=== PATIENT | female | born 1965 | race Caucasian/White ===

== ENCOUNTER 2020-09-23 08:59 | Outpatient (REF) | payer BC, SELFPAY ==
--- NOTE | ~2020-09-23 | MM_ITS ---
EXAMINATION: MM SCREENING DIGITAL BREAST TOMOSYNTHESIS, BILATERAL CLINICAL INFORMATION: Screening. Asymptomatic. The lifetime risk of breast cancer based on the Tyrer-Cuzick Model is 6%. COMPARISON: Mammography: 09/20/2019, 06/29/2018, 06/10/2017, 05/29/2016, 05/27/2015; targeted left breast ultrasound 07/04/2018. TECHNIQUE: Digital breast tomosynthesis is performed in both the craniocaudal and mediolateral oblique views along with computer-aided detection (CAD). Synthesized 2D images are generated from the tomosynthesis. FINDINGS: There is fine fibronodular parenchymal pattern. The right breast shows no interval mass or architectural abnormality. Neither breast shows abnormal calcific lesions. The axilla and skin contours are unremarkable. The left breast has new small circumscribed nodule posterior 6:00 position 0.5 cm size with probable adjacent smaller satellite circumscribed nodule. Margins are smooth and tomography. Finding may represent tiny cyst(s). Patient will be recalled for additional targeted ultrasound. MM/MM tomosynthesis screening BI IMPRESSION: 1. Left: New smooth 0.5 cm circumscribed nodule 6:00 position posterior depth, possibly a cyst. 2. Right: No mammographic evidence of malignancy. ASSESSMENT: BI-RADS 0: Incomplete - Need Additional Imaging Evaluation RECOMMENDATION: 1. Targeted ultrasound left breast. 2. Radiology department staff will contact the patient for additional imaging. This patient's information was entered into a reminder system with a target due date for their next mammogram.
== END 2020-09-23 09:00 | disposition home or self-care (01) ==
LOC: HO.MAMMO 08:59
PROVIDERS: Visit Provider Internal Medicine
DX: Z12.31 Encounter for screening mammogram for malignant neoplasm of breast (principal)
CPT/HCPCS: 77063; 77067

== ENCOUNTER 2020-09-26 15:08 | Outpatient (REF) | payer BC, SELFPAY ==
--- NOTE | ~2020-09-26 | US_ITS ---
EXAMINATION: US DIAGNOSTIC ULTRASOUND BREAST, LEFT CLINICAL INFORMATION: Recall from screening for new smooth circumscribed nodule posterior 6:00 left breast. COMPARISON: Mammography 09/23/2020, 09/20/2019. TECHNIQUE: Ultrasound left breast is targeted to the posterior inferior breast. Grayscale imaging and color Doppler are performed without and with harmonics. No prior similar to the greater FINDINGS: There is a small solitary oval cyst 6:00 position posterior depth at least 7 cm from nipple measuring 5 x 3 mm. Margins are circumscribed. There is no solid component. Increased through-transmission of sound is noted during imaging. There is no associated color flow. This corresponds to the finding on mammography. There is no solid mass or architectural abnormality or focal duct ectasia. Results are discussed with the patient at time of visit. US/US breast LT limited IMPRESSION: Cyst posterior 6:00 position measuring 5 x 3 mm. ASSESSMENT: BI-RADS 2: Benign RECOMMENDATION: Routine annual mammography screening. This patient's information was entered into a reminder system with a target due date for their next mammogram.
== END 2020-09-26 15:09 | disposition home or self-care (01) ==
LOC: HO.MAMMO 15:08
PROVIDERS: Visit Provider Internal Medicine
DX: N63.25 Unspecified lump in the left breast, overlapping quadrants (principal)
CPT/HCPCS: 76642

== ENCOUNTER 2021-10-07 07:40 | Outpatient (REF) | payer OTHER, SELFPAY ==
--- NOTE | ~2021-10-07 | MM_ITS ---
EXAMINATION: MM SCREENING DIGITAL BREAST TOMOSYNTHESIS, BILATERAL CLINICAL INFORMATION: Screening The lifetime risk of breast cancer based on the Tyrer-Cuzick Model is 6.2%. COMPARISON: Mammography: September 26, 2020 and studies dating back to March 31, 2013 TECHNIQUE: Digital breast tomosynthesis is performed in both the craniocaudal and mediolateral oblique views along with computer-aided detection (CAD). Synthesized 2D images are generated from the tomosynthesis. FINDINGS: The breasts are heterogeneously dense, which may obscure small masses (ACR BI-RADS breast composition Category c). There is a stable parenchymal pattern seen bilaterally without new abnormal dominant mass or suspicious grouping of microcalcifications. Within the right axilla there is an irregularly lobular shaped lymph node with question of cortical thickening for which targeted ultrasound evaluation is recommended. MM/MM tomosynthesis screening BI IMPRESSION: Possible abnormal right axillary lymph node for further evaluation with ultrasound. ASSESSMENT: BI-RADS 0: Incomplete - Need Additional Imaging Evaluation RECOMMENDATION: Targeted right breast axillary ultrasound.
== END 2021-10-07 07:41 | disposition home or self-care (01) ==
LOC: HO.MAMMO 07:40
PROVIDERS: Visit Provider Internal Medicine
DX: Z12.31 Encounter for screening mammogram for malignant neoplasm of breast (principal)
CPT/HCPCS: 77063; 77067

== ENCOUNTER 2021-10-14 08:38 | Outpatient (REF) | payer OTHER, SELFPAY ==
--- NOTE | ~2021-10-14 | US_ITS ---
EXAMINATION: US DIAGNOSTIC ULTRASOUND BREAST, RIGHT CLINICAL INFORMATION: Lobular appearing lymph node with question thickened cortex. COMPARISON: Mammography of October 07, 2021 and studies dating back to August 05, 2009. TECHNIQUE: Ultrasound of the right axilla is performed with real-time rivas scale imaging and color Doppler. FINDINGS: Ultrasound of the right axilla demonstrates multiple normal appearing lymph nodes without evidence of cortical thickening or lobulation. Normal fatty hilum present. Results are discussed with the patient at time of visit. US/US breast RT limited IMPRESSION: Normal right axillary lymph nodes without abnormal mass or abnormal lymph node appreciated. ASSESSMENT: BI-RADS 1: Negative RECOMMENDATION: Routine annual mammography screening. This patient's information was entered into a reminder system with a target due date for their next mammogram.
== END 2021-10-14 08:39 | disposition home or self-care (01) ==
LOC: HO.MAMMO 08:38
PROVIDERS: Visit Provider Internal Medicine
DX: N63.15 Unspecified lump in the right breast, overlapping quadrants (principal)
CPT/HCPCS: 76642

== ENCOUNTER 2022-10-21 07:17 | Outpatient (REF) | payer OTHER, SELFPAY | END 2022-10-21 07:18 | disposition home or self-care (01) | LOC: HO.MAMMO 07:17 | PROVIDERS: PCP Internal Medicine; Referring Provider Internal Medicine; Visit Provider Internal Medicine | DX: Z12.31 Encounter for screening mammogram for malignant neoplasm of breast (principal) | CPT/HCPCS: 77063; 77067 ==

== ENCOUNTER → 2022-10-21 07:30 | Outpatient (BNV) | payer OTHER, SELFPAY | PROVIDERS: PCP Internal Medicine; Referring Provider Internal Medicine; Visit Provider Radiology Diagnostic Radiology | DX: Z12.31 Encounter for screening mammogram for malignant neoplasm of breast (principal) | CPT/HCPCS: 77063; 77067 ==

== ENCOUNTER 2023-10-27 07:12 | Outpatient (REF) | payer OTHER, SELFPAY ==
--- NOTE | ~2023-10-27 | MM_ITS ---
EXAMINATION: MM SCREENING DIGITAL BREAST TOMOSYNTHESIS, BILATERAL CLINICAL INFORMATION: Screening. Asymptomatic. COMPARISON: Mammography: Comparison is made with available priors TECHNIQUE: Digital breast mammography with tomosynthesis is performed in both the craniocaudal and mediolateral oblique views along with computer-aided detection (CAD). FINDINGS: The breasts are heterogeneously dense, which may obscure small masses (ACR BI-RADS breast composition Category c). There are no significant masses, abnormal calcifications, or other abnormalities. MM/MM tomosynthesis screening BI IMPRESSION: No mammographic evidence of malignancy. ASSESSMENT: BI-RADS BI-RADS 1 - Negative RECOMMENDATION: Routine annual mammography screening. 1 year F/U This examination should not preclude the clinical evaluation of a suspicious palpable abnormality. This patient's information was entered into a reminder system with a target due date for their next mammogram. Electronically signed by: Alpa Kraft DO 11/14/2023 09:14 AM EDT
== END 2023-10-27 07:13 | disposition home or self-care (01) ==
LOC: HO.MAMMO 07:12
PROVIDERS: PCP Internal Medicine; Visit Provider Internal Medicine
DX: Z12.31 Encounter for screening mammogram for malignant neoplasm of breast (principal)
CPT/HCPCS: 77063; 77067

== ENCOUNTER → 2023-10-27 07:30 | Outpatient (BNV) | payer OTHER, SELFPAY | PROVIDERS: PCP Internal Medicine; Visit Provider Internal Medicine | DX: Z12.31 Encounter for screening mammogram for malignant neoplasm of breast (principal) | CPT/HCPCS: 77063; 77067 ==

== ENCOUNTER 2024-11-01 07:45 | Outpatient (REF) | payer OTHER, SELFPAY ==
--- OUTSIDE RECORDS SUMMARY | 2024-11-01 07:48 | XMS_ITS | Encounter Summary ---
Author Organization [facility] Address [address] [place] [address] [place] [phone] Phone Care Team Providers Care Carburizer Name Role Phone Ari Beauchamp MD Primary Care Provider [phone] Ari Beauchamp MD Unavailable [phone] Amberly Lynch NP Primary Care Provider Encounter Details Date Type Department Care Team (Latest Contact Info) Description 08/31/2017 Transcribe Orders [address] [address] Ari Beauchamp MD [address] [place] [phone] [email or web address] Neck pain (Primary Dx); Routine general medical examination at a health care facility Social History Tobacco Use Types Packs/Day Years Used Date Smoking Tobacco: Never Assessed Comments Unknown Sex and Gender Information Value Date Recorded Sex Assigned at Not on file Legal Sex Female 9:41 PM EDT Gender Identity Not on file Sexual Orientation Not on file documented as of this encounter Plan of Treatment Not on file documented as of this encounter Results * Lyme screen with reflex to Western blot, blood (08/31/2017 7:31 AM EDT) Lyme AB IgG Negative Negative [facility] Lyme AB IgM Negative Negative [facility] Blood 08/31/2017 7:31 AM EDT 08/31/2017 7:46 AM EDT us Ari Beauchamp MD LAB BLOOD ORDERABLES Final R esult Performing Organization Address [facility] Co de Phone Number [address] [address] * Rheumatoid factor (08/31/2017 7:31 AM EDT) RHEUMATOID FACTOR <10.0 0.0 - 14.0 IU/ml [facility] Blood 08/31/2017 7:31 AM EDT 08/31/2017 7:46 AM EDT us Ari Beauchamp MD LAB BLOOD ORDERABLES Final R esult Performing Organization Address [facility] Co de Phone Number [address] [address] * C-Reactive Protein (08/31/2017 7:31 AM EDT) Pathologist [facility] C REACTIVE PROTEIN 2.6 0.0 - 4.0 mg/L [facility] Comment:New Reference Range and Measuring Units effective 07/07/17. Blood 08/31/2017 7:31 AM EDT 08/31/2017 7:46 AM EDT us Ari Beauchamp MD LAB BLOOD ORDERABLES Final R esult Performing Organization Address [facility] Co de Phone Number [address] [address] * CBC and differential (08/31/2017 7:31 AM EDT) WBC 8.04 3.40 - 11.20 K/uL [facility] RBC 4.43 3.80 - 4.80 M/uL [facility] HGB 14.2 12.0 - 15.0 g/dL [facility] HCT 42.9 36.0 - 46.0 % [facility] PLT 296 130 - 400 K/uL [facility] MCV 96.8 79.0 - 98.0 fL [facility] MCH 32.1 27.0 - 34.8 pg [facility] MCHC 33.1 31.5 - 36.0 g/dL [facility] RDW 13.1 10.8 - 14.6 % [facility] MPV 10.0 9.4 - 12.4 fl [facility] NRBC 0.00 /100 WBCs [facility] ABSOLUTE NRBC 0.00 K/uL [facility] DIFF METHOD Auto [facility] NEUTS 58.5 45.30 - 77.70 % [facility] LYMPHS 32.6 12.30 - 39.70 % [facility] MONOS 5.8 4.10 - 12.80 % [facility] EOS 2.4 0 - 7.2 % [facility] BASOS 0.6 0 - 2.80 % [facility] Granulocytes, immature (%) 0.1 0.0 - 0.9 % [facility] ABSOLUTE NEUTS 4.70 1.40 - 7.70 K/uL [facility] ABSOLUTE LYMPHS 2.62 0.60 - 3.20 K/uL [facility] ABSOLUTE MONOS 0.47 0.11 - 0.59 K/uL [facility] ABSOLUTE EOS 0.19 0.01 - 0.50 K/uL [facility] ABSOLUTE BASOS 0.05 0.00 - 0.08 K/uL [facility] Granulocytes, immature 0.01 0.00 - 0.05 K/uL [facility] Blood 08/31/2017 7:31 AM EDT 08/31/2017 7:46 AM EDT us Ari Beauchamp MD LAB BLOOD ORDERABLES Final R esult [facility] [address] [place] [address] * Antinuclear antibody (BRIAN) (08/31/2017 7:31 AM EDT) BRIAN SCREEN ON HEP 2 Negative Negative [facility] Blood 08/31/2017 7:31 AM EDT 08/31/2017 7:46 AM EDT us Ari Beauchamp MD LAB BLOOD ORDERABLES Final R esult [address] [address] * TSH with reflex (08/31/2017 7:31 AM EDT) TSH 2.33 0.27 - 4.20 uIU/mL [facility] Blood 08/31/2017 7:31 AM EDT 08/31/2017 7:46 AM EDT us Ari Beauchamp MD LAB BLOOD ORDERABLES Final R esult Performing Organization Address [facility] Co de Phone Number [address] [address] * (ABNORMAL) Lipid panel (08/31/2017 7:31 AM EDT) HDL 70 mg/dL [facility] Comment: Interpretation: Risk Level Females Decreased >55mg/dL Average 50-55 mg/dL Increased <50 mg/dL CHOLESTEROL 197 0 - 240 mg/dL [facility] TRIGLYCERIDES 88 30 - 160 mg/dL [facility] LDL 109 50 - 129 mg/dL [facility] Comment: LDL levels in terms of risk for coronary heart disease: <100 mg/dL: Optimal 100-129 mg/dL: Near or above optimal 130-159 mg/dL: Borderline high 160-189 mg/dL: High >190 mg/dL: Very High CARDIAC RISK RATIO 2.8(L) 3.3 - 4.4 C [facility] Blood 08/31/2017 7:31 AM EDT 08/31/2017 7:46 AM EDT us Ari Beauchamp MD LAB BLOOD ORDERABLES Final R esult Performing Organization Address City/[facility]/ZIP Co de Phone Number [address] [address] * (ABNORMAL) Comprehensive metabolic panel (08/31/2017 7:31 AM EDT) SODIUM 146 133 - 146 mmol/L [facility] POTASSIUM 4.8 3.3 - 5.1 mmol/L [facility] CHLORIDE 109(H) 96 - 108 mmol/L [facility] CO2 26 21 - 35 mmol/L [facility] BUN 9 6 - 19 mg/dL [facility] CREATININE 1.00 0.5 - 1.5 mg/dL [facility] GLUCOSE 95 70 - 99 mg/dL [facility] ALBUMIN 4.2 3.9 - 4.8 g/dL [facility] TOTAL PROTEIN 6.9 6.5 - 8.0 g/dL [facility] CALCIUM 10.0 8.4 - 10.3 mg/dL [facility] ALKALINE PHOSPHATASE 97 39 - 117 U/L [facility] TOTAL BILIRUBIN 0.3 0.0 - 1.2 mg/dL [facility] AST 19 0 - 37 U/L [facility] ALT 6 0 - 40 U/L [facility] GLOBULIN 2.7 1 - 4.8 g/dL [facility] EGFR 64 >59 mL/min/1.7 3m2 [facility] Comment:If patient is black, multiply result by 1.159. Estimated glomerular filtration rate calculated using the CKD-EPI equation. ANION GAP 16 10 - 20 mmol/L [facility] Blood 08/31/2017 7:31 AM EDT 08/31/2017 7:46 AM EDT us Ari Beauchamp MD LAB BLOOD ORDERABLES Final R esult [facility] [address] [place] [address] documented in this encounter Visit Diagnoses Diagnosis Neck pain- Primary Cervicalgia Routine general medical examination at a health care facility documented in this encounter Care Teams Carburizer Relationship Specialty Start Date End Date Ari Beauchamp MD [address] [place] [phone] [email or web address] PCP - General 12/08/16 07/20/23 Amberly Lynch NP [address] [place] [phone] [email or web address] PCP - General Nurse Practitioner 07/21/23 Ari Beauchamp MD [address] [place] [phone] [email or web address] Insurance Assigned Provider 05/28/18 04/27/21 documented as of this encounter Additional Source Comments The information contained in this document represents components of the legal health record. It is not the complete legal health record.[facility]
--- OUTSIDE RECORDS SUMMARY | 2024-11-01 07:48 | XMS_ITS | Encounter Summary ---
Author Organization [facility] Address [address] [place] [phone] Phone Care Team Providers Care Anthropology Faculty Member Name Role Phone Ari Beauchamp MD Primary Care Provider [phone] Amberly Lynch NP Primary Care Provider Encounter Details Date Type Department Care Team (Latest Contact Info) Description 11/27/2021 Transcribe Orders [facility] Laboratory [address] [place] [address] [phone] Amberly Gil NP [address] [place] [address] [email or web address] Constipation, unspecified constipation type (Primary Dx); Nausea; Abdominal pain, epigastric; Lower abdominal pain Social History Tobacco Use Types Packs/Day Years Used Date Smoking Tobacco: Every Day Cigarettes Smokeless Tobacco: Never Comments:about 15 a day Alcohol Use Standard Drinks/Week Comments Not Currently 0 (1 standard drink = 0.6 oz pur e alcohol) Comments No Sex and Gender Information Value Date Recorded Sex Assigned at Not on file Legal Sex Female 9:41 PM EDT Gender Identity Not on file Sexual Orientation Not on file documented as of this encounter Plan of Treatment Not on file documented as of this encounter Results * TSH (11/27/2021 10:48 AM EDT) TSH 0.97 0.27 - 4.20 uIU/mL [facility] Blood 11/27/2021 10:4 8 AM EDT 11/27/2021 10:53 AM EDT Amberly Gutiérrez Jeffery [employer] LAB BLOOD ORDERABLES Final Result [address] [address] * C-Reactive Protein (11/27/2021 10:48 AM EDT) [facility] C REACTIVE PROTEIN <3.0 0.0 - 4.0 mg/L [facility] Blood 11/27/2021 10:4 8 AM EDT 11/27/2021 10:53 AM EDT Amberly Gil THEATER [employer] DES[employer] LAB BLOOD ORDERABLES Final Result [address] [address] * Comprehensive metabolic panel (11/27/2021 10:48 AM EDT) [facility] SODIUM 140 133 - 146 mmol/L [facility] POTASSIUM 4.6 3.3 - 5.1 mmol/L [facility] CHLORIDE 105 96 - 108 mmol/L [facility] CO2 25 21 - 35 mmol/L [facility] BUN 15 6 - 19 mg/dL [facility] CREATININE 0.80 0.5 - 1.5 mg/dL [facility] GLUCOSE 90 70 - 99 mg/dL [facility] ALBUMIN 4.4 3.9 - 4.8 g/dL [facility] TOTAL PROTEIN 6.7 6.5 - 8.0 g/dL [facility] CALCIUM 9.9 8.4 - 10.3 mg/dL [facility] ALKALINE PHOSPHATASE 85 39 - 117 U/L [facility] TOTAL BILIRUBIN 0.2 0.0 - 1.2 mg/dL [facility] AST 23 0 - 37 U/L [facility] ALT 14 0 - 40 U/L [facility] GLOBULIN 2.3 1 - 4.8 g/dL [facility] EGFR 86 >59 mL/min/1.7 3m2 [facility] Comment:Estimated glomerular filtration rate calculated using the CKD-EPI refit equation. ANION GAP 15 10 - 20 mmol/L [facility] Blood 11/27/2021 10:4 8 AM EDT 11/27/2021 10:53 AM EDT us Amberly Gil THEATER [employer] DES[employer] LAB BLOOD ORDERABLES Final Result [facility] [address] [place], [place] [id number] * (ABNORMAL) CBC and differential (11/27/2021 10:48 AM EDT) WBC 10.17 4.00 - 11.00 K/uL [facility] RBC 4.63 3.72 - 5.30 M/uL [facility] HGB 14.9 11.4 - 15.9 g/dL [facility] HCT 44.0 34.2 - 46.8 % [facility] PLT 335 140 - 430 K/uL [facility] MCV 95.0 78.0 - 97.0 fL [facility] MCH 32.2 25.0 - 33.0 pg [facility] MCHC 33.9 32.0 - 36.0 g/dL [facility] RDW 12.9 11.0 - 16.0 % [facility] MPV 9.9 8.4 - 12.8 fl [facility] DIFF METHOD Auto [facility] NEUTS 66.1 43.0 - 75.0 % [facility] LYMPHS 24.9 18.2 - 47.4 % [facility] MONOS 5.6 4.00 - 11.00 % [facility] EOS 2.2 0.0 - 8.0 % [facility] BASOS 0.6 0.0 - 2.0 % [facility] Granulocytes, immature (%) 0.6 0.0 - 0.9 % [facility] ABSOLUTE NEUTS 6.73 1.80 - 7.70 K/uL [facility] ABSOLUTE LYMPHS 2.53 1.00 - 3.10 K/uL [facility] ABSOLUTE MONOS 0.57 0.20 - 0.80 K/uL [facility] ABSOLUTE EOS 0.22 0.00 - 0.80 K/uL [facility] ABSOLUTE BASOS 0.06 0.00 - 0.09 K/uL [facility] Granulocytes, immature 0.06(H) 0.00 - 0.05 K/uL [facility] Blood 11/27/2021 10:4 8 AM EDT 11/27/2021 10:53 AM EDT Amberly Marlachiki Gil THEATER SET PRODUCTION DESIGNER LAB BLOOD ORDERABLES Final Result Performing Organization Address [facility] Co de Phone Number [address] [address] * Immunoglobulin A (11/27/2021 10:48 AM EDT) IgA 100 70 - 400 mg/dL [facility] Blood 11/27/2021 10:4 8 AM EDT 11/27/2021 10:53 AM EDT [facility] THEATER SET PRODUCTION DESIGNER LAB BLOOD ORDERABLES Final Result Performing Organization Address [facility] Co de Phone Number [address] [address] * Tissue transglutaminase IgA (11/27/2021 10:48 AM EDT) TTG IGA ANTIBODY <1.2 <4.0 (Negative) U/mL [facility] Blood 11/27/2021 10:4 8 AM EDT 11/27/2021 10:53 AM EDT Amberly Gil THEATER [employer]ODUCTION DESIGNER LAB BLOOD ORDERABLES Final Result Performing Organization Address [facility] Co de Phone Number [facility] [address] [place] [address] documented in this encounter Visit Diagnoses Diagnosis Constipation, unspecified constipation type- Primary Nausea Nausea alone Abdominal pain, epigastric Lower abdominal pain Abdominal pain, other specified site documented in this encounter Care Teams Anthropology Faculty Member Relationship Specialty Start Date End Date Ari Beauchamp MD [address] [place] [phone] [email or web address] PCP - General 12/08/16 Amberly Lynch NP [address] [place] [phone] [email or web address] PCP - General Nurse Practitioner 07/21/23 documented as of this encounter Additional Source Comments The information contained in this document represents components of the legal health record. It is not the complete legal health record.[facility]
--- OUTSIDE RECORDS SUMMARY | 2024-11-01 07:48 | XMS_ITS | Encounter Summary ---
Author Organization [facility] Address [address] [place] [phone] Phone Care Team Providers Care Senior Qa Engineer Name Role Phone Amberly Lynch HOUSE SHORER Primary Care Provider Reason for Referral * MRI/CAT Scan - Closed Specialty Diagnoses / Procedures Referred By Contac t Referred To Contact Radiology Diagnoses Radiculopathy, thoracic region Procedures MRI Thoracic Spine CHG MRI, DORSAL SPINE Aubrey Aguilera MD [address] [place] [phone] Phone: tel: fax: [email or web address] Referral ID Status Reason Start Date Expiration Date Visits Re quested Visits Authorized [id number] Closed 10/21/2023 12/19/2023 1 1 Encounter Details Date Type Department Care Team (Latest Contact Info) Description 10/21/2023 Transcribe Orders Virtual Department [address] [place] [address] Aubrey Aguilera MD [address] [place] [phone] [email or web address] Radiculopathy, thoracic region (Primary Dx) Social History Tobacco Use Types Packs/Day Years Used Date Smoking Tobacco: Every Day Cigarettes Smokeless Tobacco: Never Comments:about 15 a day Alcohol Use Standard Drinks/Week Comments Never 0 (1 standard drink = 0.6 oz pur e alcohol) Education Answer Date Recorded Are you interested in more education? Not on mi e 06/19/2022 Are you concerned about learning? Not on file 06/19/2022 No 06/19/2022 No 06/19/2022 Digital Access Answer Date Recorded No 07/20/2022 No 07/20/2022 Reliable internet access at home? Not on file 07/20/2022 Device with a working camera? Not on file Intimate Partner Violence Answer Date R ecorded Are you denied basic needs s uch as food, clothing, or medical care? No 09/23/2023 In the past 12 months have y ou been in a relationship with a person who hurts, threatens, or tries to control you? No 09/23/2023 Are you denied basic needs s uch as food, clothing, or medical care? No 09/23/2023 In the past 12 months have y ou been in a relationship with a person who hurts, threatens, or tries to control you? No 09/23/2023 Comments No Sex and Gender Information Value Date Recorded Sex Assigned at Not on file Legal Sex Female 9:41 PM EDT Gender Identity Not on file Sexual Orientation Not on file documented as of this encounter Plan of Treatment Not on file documented as of this encounter Results * MRI THORACIC SPINE (BONE) WITHOUT CONTRAST (12/02/2023 4:53 PM EDT) Anatomical Region Laterality Modality T-spine Magnetic Resonan ce 12/03/2023 3:30 PM EDT Impressions 12/03/2023 3:40 PM EDT Mild degenerative changes of the thoracic spine without high-grade canal or foraminal narrowing. Narrative 12/03/2023 3:40 PM EDT MRI THORACIC SPINE (BONE) WITHOUT CONTRAST Referring clinician's provided indication for this examination in Epic: Outside Radiology Order; radiculopathy thoracic region TECHNIQUE: MRI THORACIC SPINE (BONE) WITHOUT CONTRAST Multi-sequence, multi-planar MRI of the thoracic spine was performed without intravenous contrast. COMPARISON: XR CHEST PA AND LATERAL 2 VIEWS FINDINGS: THORACIC SPINE: The examination is degraded by motion artifact, predominantly involving the axial sequences. Alignment and Vertebrae: Normal alignment. No compression fracture. Marrow: No suspicious bone marrow replacing lesion. T1 and T2 hyperintense lesion within the T10 vertebral body, compatible with an intraosseous hemangioma. Discs and Endplates: Mild multilevel disc height loss and disc desiccation. Mild multilevel facet arthropathy. Small endplate osteophytes in the upper lumbar spine. No high-grade canal or foraminal narrowing Spinal Cord: No spinal cord compression or signal abnormality. Soft Tissue: No prevertebral edema. Other Findings: None. Procedure Note Giovanni Liao MD - 12/03/2023 MRI THORACIC SPINE (BONE) WITHOUT CONTRAST Referring clinician's provided indication for this examination in Epic:Outside Radiology Order; radiculopathy thoracic region TECHNIQUE: MRI THORACIC SPINE (BONE) WITHOUT CONTRAST Multi-sequence, multi-planar MRI of the thoracic spine was performedwithout intravenous contrast. COMPARISON: XR CHEST PA AND LATERAL 2 VIEWS FINDINGS: THORACIC SPINE: The examination is degraded by motion artifact, predominantly involvingthe axial sequences. Alignment and Vertebrae: Normal alignment. No compression fracture. Marrow: No suspicious bone marrow replacing lesion. T1 and T2 hyperintenselesion within the T10 vertebral body, compatible with an intraosseoushemangioma. Discs and Endplates: Mild multilevel disc height loss and discdesiccation. Mild multilevel facet arthropathy. Small endplate osteophytesin the upper lumbar spine. No high-grade canal or foraminal narrowing Spinal Cord: No spinal cord compression or signal abnormality. Soft Tissue: No prevertebral edema. Other Findings: None. IMPRESSION: Mild degenerative changes of the thoracic spine without high-grade canalor foraminal narrowing. Aubrey Aguilera MD [facility] MR XSPECIALTY Final Result documented in this encounter Visit Diagnoses Diagnosis Radiculopathy, thoracic region- Primary Thoracic or lumbosacral neuritis or radiculitis, unspecified Radiculopathy, thoracic region Thoracic or lumbosacral neuritis or radiculitis, unspecified documented in this encounter Care Teams Senior Qa Engineer Relationship Specialty Start Date End Date Amberly Lynch NP [address] [place] [phone] [email or web address] PCP - General Nurse Practitioner 07/21/23 documented as of this encounter Additional Source Comments The information contained in this document represents components of the legal health record. It is not the complete legal health record.[facility]
--- OUTSIDE RECORDS SUMMARY | 2024-11-01 07:48 | XMS_ITS | Clinical Summary ---
Author Organization [facility] Address [address] [place] [address] Care Team Providers Care Pressurised Container Filler Name Role Phone Unavailable Primary Care Provider Unavailabl e Social History Tobacco Use Types Packs/Day Years Used Date Smoking Tobacco: Never Assessed Comments Unknown Sex and Gender Information Value Date Recorded Sex Assigned at Not on file Legal Sex Female 1:50 PM EDT Gender Identity Not on file Sexual Orientation Not on file Plan of Treatment Health Maintenance Due Date Last Done Comments Hepatitis C Virus Screening 1964 HIV Screening 1977 DTaP/Tdap/Td Vaccines (1 - Tdap) 08/30/1983 Pneumococcal Vaccines 50+ (1 of 1 - PCV) 2014 Zoster (Shingles) Vaccine (1 of 2) 2014 COVID-19 Vaccine ( - 2023-2 5 season) 2024 RSV Vaccine 60 years and old er and Patients (1 - 1-dose 75+ series) 08/30/2039 Hepatitis B Vaccines Aged Out No long er eligible based on patient's age to complete this topic
--- OUTSIDE RECORDS SUMMARY | 2024-11-01 07:48 | XMS_ITS | Encounter Summary ---
Author Organization [facility] Address [address] [place] [phone] Phone Care Team Providers Care Ear Mold Laboratory Technician Name Role Phone Ari Beauchamp MD Primary Care Provider [phone] Ari Beauchamp MD Unavailable [phone] Amberly Lynch NP Primary Care Provider Encounter Details Date Type Department Care Team (Late st Contact Info) Description 09/06/2017 Ancillary Orders Virtual Department [address] [place] [address] Ari Beauchamp MD [address] [place] [phone] [email or web address] Neck pain Social History Tobacco Use Types Packs/Day Years Used Date Smoking Tobacco: Never Assessed Comments Unknown Sex and Gender Information Value Date Recorded Sex Assigned at Not on file Legal Sex Female 9:41 PM EDT Gender Identity Not on file Sexual Orientation Not on file documented as of this encounter Plan of Treatment Not on file documented as of this encounter Results * XR CERVICAL SPINE 4-5 VIEWS (09/07/2017 1:07 PM EDT) Anatomical Region Laterality Modality C-spine Radiographic Angela ging 09/07/2017 1:14 PM EDT Impressions 09/07/2017 1:16 PM EDT Relatively unremarkable evaluation of the cervical spine. There are negligible degenerative changes evident. The neuroforamen are patent. No compression fracture or subluxation is seen. S/S: Neck pain, no trauma POS - [id number] Narrative 09/07/2017 1:16 PM EDT COMPARISON: Cervical spine x-rays September 07, 2013 and MRI cervical spine September 12, 2013 FINDINGS: AP, lateral, both oblique, and odontoid views of the cervical spine are obtained. The odontoid appears intact. There is relative preservation of disc space height. No compression fracture or subluxation is noted. On oblique views the neural foramen are patent. The lung apices are clear. Procedure Note Eren Gu MD - 09/07/2017 COMPARISON: Cervical spine x-rays September 07, 2013 and MRI cervical spineJu2013 FINDINGS: AP, lateral, both oblique, and odontoid views of the cervical spine areobtained. The odontoid appears intact. There is relative preservation of disc space height. No compression fracture or subluxation is noted. On oblique views the neural foramen are patent. The lung apices are clear. IMPRESSION: Relatively unremarkable evaluation of the cervical spine. There arenegligible degenerative changes evident. The neuroforamen are patent. Nocompression fracture or subluxation is seen. S/S: Neck pain, no trauma POS - [id number] Ari Beauchamp MD IMG XR SPINE Final Result documented in this encounter Visit Diagnoses Diagnosis Neck pain Cervicalgia Neck pain Cervicalgia documented in this encounter Care Teams Ear Mold Laboratory Technician Relationship Specialty Start Date End Date Ari Beauchamp MD [address] [place] [phone] [email or web address] PCP - General 12/08/16 07/20/23 Amberly Lynch NP [address] [place] [phone] [email or web address] PCP - General Nurse Practitioner 07/21/23 Ari Beauchamp MD [address] [place] [phone] [email or web address] Assigned Provider 05/28/18 04/27/21 documented as of this encounter Additional Source Comments The information contained in this document represents components of the legal health record. It is not the complete legal health record.[facility]
--- OUTSIDE RECORDS SUMMARY | 2024-11-01 07:48 | XMS_ITS | Encounter Summary ---
Author Organization [facility] Address [address] [place] [address] [place] [address] Phone Care Team Providers Care Director Of Orthopedics Name Role Phone Amberly Lynch SCHOOL LABORATORY TECHNICIAN Primary Care Provider Encounter Details Date Type Department Care Team (Late st Contact Info) Description 10/21/2023 Procedure Pass [facility] [address] [place] [address] Social History Tobacco Use Types Packs/Day Years [...] on file documented as of this encounter Visit Diagnoses Not on filedocumented in this encounter Care Teams Director Of Orthopedics Relationship Specialty Start Date End Date Amberly Lynch NP [address] [place] [phone] [email or web address] PCP - General Nurse Practitioner 07/21/23 documented as of this encounter Additional Source Comments The information contained in this document represents components of the legal health record. It is not the complete legal health record.[facility]
--- OUTSIDE RECORDS SUMMARY | 2024-11-01 07:48 | XMS_ITS | Encounter Summary ---
Author Organization [facility] Address [address] [place] [address] [place] [phone] Phone Care Team Providers Care Filler Shredder Name Role Phone Amberly Lynch FIELD APPLICATION ENGINEER Primary Care Provider Encounter Details Date Type Department Care Team (Late st Contact Info) Description 09/23/2023 Procedure Pass OR Admitting Dept - Virtual Department [address] [place] [address] Social History Tobacco Use Types Packs/Day Years [...] on file documented as of this encounter Functional Status * Calculated C-SSRS Risk Score (Lifetime/Recent) Answer Date of Assessment Author No Risk Indicated 09/23/2023 2:00 PM EDT Essie Tamez RN * Pleasants Suicide Severity Rating Scale (Screener/Recent Self-Report) Question Answer Date of Assessment Author 1. Wish to be (Past 1 Month) No 024 2:00 PM EDT Essie Tamez RN 2. Non-Specific Active Suici olu Thoughts (Past 1 Month) No 09/23/2023 2:00 PM EDT Essie Tamez RN 6. Suicidal Behavior (Lifetime) No 2:00 PM EDT Essie Tamez RN documented as of this encounter Plan of Treatment Not on file documented as of this encounter Visit Diagnoses Not on filedocumented in this encounter Care Teams Filler Shredder Relationship Specialty Start Date End Date Amberly Lynch NP [address] [place] [phone] [email or web address] PCP - General Nurse Practitioner 07/21/23 documented as of this encounter Additional Source Comments The information contained in this document represents components of the legal health record. It is not the complete legal health record.[facility]
--- OUTSIDE RECORDS SUMMARY | 2024-11-01 07:48 | XMS_ITS | Encounter Summary ---
Author Organization [facility] Address [address] [place] [address] [place] [phone] Phone Care Team Providers Care Head Miller Name Role Phone Ari Beauchamp MD Primary Care Provider [phone] Ari Beauchamp MD Unavailable [phone] Amberly Lynch NP Primary Care Provider Encounter Details Date Type Department Care Team (Late st Contact Info) Description 08/30/2017 Ancillary Orders Virtual Department 30 [place] [address] Ari Beauchamp MD [address] [place] [phone] [email or web address] Smoker; Neck pain; Shoulder pain, unspecified chronicity, unspecified laterality Social History Tobacco Use Types Packs/Day Years Used Date Smoking Tobacco: Never Assessed Comments Unknown Sex and Gender Information Value Date Recorded Sex Assigned at Not on file Legal Sex Female 9:41 PM EDT Gender Identity Not on file Sexual Orientation Not on file documented as of this encounter Plan of Treatment Not on file documented as of this encounter Results * XR SHOULDER 2 VIEWS (LEFT) (09/01/2017 12:46 PM EDT) Anatomical Region Laterality Modality Shoulder Left Radiographic Angela ging 09/01/2017 3:52 PM EDT Impressions 09/01/2017 3:54 PM EDT No significant bony abnormality. POS [id number] Narrative 09/01/2017 3:54 PM EDT Comparison is made with the [facility] study of 08/05/2015. Three views were obtained and disclose no fracture, subluxation, or other significant abnormality involving the visualized regional skeletal structures. No aberrant soft tissue calcifications of significance are noted. Procedure Note Yadi Wyman MD - 09/01/2017 Comparison is made with the [facility] study of 08/05/2015.Three views were obtained and disclose no fracture, subluxation, or othersignificant abnormality involving the visualized regional skeletalstructures. No aberrant soft tissue calcifications of significance arenoted. IMPRESSION: No significant bony abnormality. POS [id number] Ari Beauchamp MD IMG XR UPPER EXTREMITY Final Result * XR CHEST PA AND LATERAL 2 VIEWS (09/01/2017 12:46 PM EDT) Anatomical Region Laterality Modality Chest Radiographic Angela ging 09/01/2017 2:37 PM EDT Impressions 09/01/2017 2:40 PM EDT No evidence of an acute cardiopulmonary process. COPD and chronic interstitial change. POS - [id number] Narrative 09/01/2017 2:40 PM EDT HISTORY: See above. COMPARISON: Multiple prior most recent 08/25/2013 FINDINGS: PA and lateral views of the chest are performed. Chronic hyperinflation and mild diffuse slightly coarsened interstitial opacities. No focal infiltrate, pleural effusion, or evidence of pulmonary edema. Heart is not enlarged. Medial contours are within normal limits. Stable minimal anterior wedging of a midthoracic vertebral body. Procedure Note Yana Harris MD - 09/01/2017 HISTORY: See above. COMPARISON: Multiple prior most recent 08/25/2013 FINDINGS: PA and lateral views of the chest are performed. Chronic hyperinflation and mild diffuse slightly coarsened interstitialopacities. No focal infiltrate, pleural effusion, or evidence ofpulmonary edema. Heart is not enlarged. Medial contours are withinnormal limits. Stable minimal anterior wedging of a midthoracic vertebralbody. IMPRESSION: No evidence of an acute cardiopulmonary process. COPD and chronicinterstitial change. POS - [id number] Ari Beauchamp MD IMG XR CHEST Final Result documented in this encounter Visit Diagnoses Diagnosis Smoker Tobacco use disorder Neck pain Cervicalgia Shoulder pain, unspecified chronicity, unspecified laterality Smoker Tobacco use disorder Neck pain Cervicalgia Shoulder pain, unspecified chronicity, unspecified laterality Smoker Tobacco use disorder Neck pain Cervicalgia Shoulder pain, unspecified chronicity, unspecified laterality documented in this encounter Care Teams Head Miller Relationship Specialty Start Date End Date Ari Beauchamp MD [address] [place] [phone] PCP - General 12/08/16 07/20/23 Amberly Lynch NP [address] [place] [phone] [email or web address] PCP - General Nurse Practitioner 07/21/23 Ari Beauchamp MD [address] [place] [phone] Insurance Assigned Provider 05/28/18 04/27/21 documented as of this encounter Additional Source Comments The information contained in this document represents components of the legal health record. It is not the complete legal health record.[facility]
--- OUTSIDE RECORDS SUMMARY | 2024-11-01 07:48 | XMS_ITS | Encounter Summary ---
Author Organization [facility] Address [address] [place] [phone] Phone Care Team Providers Care Animal Trainer Name Role Phone Ari Beauchamp MD Primary Care Provider Amberly Lynch NP Primary Care Provider Encounter Details Date Type Department Care Team (Latest Contact Info) Description 12/10/2022 Transcribe Orders [facility] [address] [phone] Amberly Gil NP [address] [place] [address] [email or web address] Constipation, unspecified constipation type (Primary Dx); Internal hemorrhoids Social History Tobacco Use Types Packs/Day Years [...] with a working camera? Not on file Comments No Sex and Gender Information Value Date Recorded Sex Assigned at Not on file Legal Sex Female 9:41 PM EDT Gender Identity Not on file Sexual Orientation Not on file documented as of this encounter Plan of Treatment Not on file documented as of this encounter Results * Hepatitis C viral load (PCR) (12/10/2022 11:36 AM EDT) Pathologist [facility] HCV RNA DETECT/QNT Undetected Undetected IU/mL [facility] Comment: (NOTE) Result in log IU/mL is Undetected. ADDITIONAL INFORMATION The quantification range of this assay is 15 to 100,000,000 IU/mL (1.18 log to 8.00 log IU/mL). Testing was performed using the isauro HCV test ([employer] with the isauro Siege Paintball0 System. Blood (Blood) 12/10/2022 11: 36 AM EDT 12/10/2022 11:42 AM EDT us Amberly Gil NP NON CULTURE MICROBIOLOGY Fi nal Result [facility] [address] [place] [address] * (ABNORMAL) Comprehensive metabolic panel (12/10/2022 11:36 AM EDT) Pathologist [facility] SODIUM 141 133 - 146 mmol/L [facility] POTASSIUM 3.8 3.3 - 5.1 mmol/L [facility] CHLORIDE 105 96 - 108 mmol/L [facility] CO2 24 21 - 35 mmol/L [facility] BUN 8 6 - 19 mg/dL [facility] CREATININE 0.90 0.5 - 1.5 mg/dL [facility] GLUCOSE 113(H) 70 - 99 mg/dL [facility] ALBUMIN 4.6 3.9 - 4.8 g/dL [facility] TOTAL PROTEIN 7.2 6.5 - 8.0 g/dL [facility] CALCIUM 10.0 8.4 - 10.3 mg/dL [facility] ALKALINE PHOSPHATASE 90 39 - 117 U/L [facility] TOTAL BILIRUBIN 0.4 0.0 - 1.2 mg/dL [facility] AST 26 0 - 37 U/L [facility] ALT 8 0 - 40 U/L [facility] GLOBULIN 2.6 1 - 4.8 g/dL [facility] EGFR 74 >59 mL/min/1.7 3m2 [facility] Comment:Estimated glomerular filtration rate calculated using the CKD-EPI refit equation. ANION GAP 16 10 - 20 mmol/L [facility] Blood 12/10/2022 11:3 6 AM EDT 12/10/2022 11:42 AM EDT us Amberly Gil NP LAB BLOOD ORDERABLES Final Result Performing Organization Address City/State/[facility] Co de Phone Number [address] [address] * CBC and differential (12/10/2022 11:36 AM EDT) WBC 6.11 4.00 - 11.00 K/uL [facility] RBC 4.63 3.72 - 5.30 M/uL [facility] HGB 14.8 11.4 - 15.9 g/dL [facility] HCT 44.2 34.2 - 46.8 % [facility] PLT 276 140 - 430 K/uL [facility] MCV 95.5 78.0 - 97.0 fL [facility] MCH 32.0 25.0 - 33.0 pg [facility] MCHC 33.5 32.0 - 36.0 g/dL [facility] RDW 12.8 11.0 - 16.0 % [facility] MPV 9.8 8.4 - 12.8 fl [facility] DIFF [employer] [facility] NEUTS 62.5 43.0 - 75.0 % [facility] LYMPHS 25.0 18.2 - 47.4 % [facility] MONOS 10.5 4.00 - 11.00 % [facility] EOS 0.8 0.0 - 8.0 % [facility] BASOS 1.0 0.0 - 2.0 % [facility] Granulocytes, immature (%) 0.2 0.0 - 0.9 % [facility] ABSOLUTE NEUTS 3.82 1.80 - 7.70 K/uL [facility] ABSOLUTE LYMPHS 1.53 1.00 - 3.10 K/uL [facility] ABSOLUTE MONOS 0.64 0.20 - 0.80 K/uL [facility] ABSOLUTE EOS 0.05 0.00 - 0.80 K/uL [facility] ABSOLUTE BASOS 0.06 0.00 - 0.09 K/uL [facility] Granulocytes, immature 0.01 0.00 - 0.05 K/uL [facility] Blood 12/10/2022 11:3 6 AM EDT 12/10/2022 11:42 AM EDT us Amberly Gil NP LAB BLOOD ORDERABLES Final Result Performing Organization Address City/State/[facility] Co de Phone Number [address] [phone] documented in this encounter Visit Diagnoses Diagnosis Constipation, unspecified constipation type- Primary Internal hemorrhoids Internal hemorrhoids without mention of complication documented in this encounter Care Teams Animal Trainer Relationship Specialty Start Date End Date Ari Beauchamp MD [address] [place] [phone] [email or web address] PCP - General 12/08/16 Amberly Lynch NP [address] [place] [phone] [email or web address] PCP - General Nurse Practitioner 07/21/23 documented as of this encounter Additional Source Comments The information contained in this document represents components of the legal health record. It is not the complete legal health record.[facility]
--- OUTSIDE RECORDS SUMMARY | 2024-11-01 07:48 | XMS_ITS | Clinical Summary ---
Author Organization [facility] Address [address] [place] [phone] Phone Care Team Providers Care Supply Teacher Name Role Phone Amberly Lynch VENDING MACHINE OPERATOR Primary Care Provider Allergies Active Allergy Reactions Criticality Noted Date Comments Ciprofloxacin GI Upset 04/17/2016 Doxycycline 04/17/2016 Other reaction(s): Unknown Pseudoephedrine Tannate 07/08/2018 Medications diazePAM (VALIUM) 5 MG tablet 07/16/2023 Active mirtazapine (REMERON) 15 MG tablet 07/17/2023 Active traZODone (DESYREL) 50 MG tablet 07/16/2023 Active acetaminophen (TYLENOL) 325 mg tablet Take 2 tablets (650 mg total) by mouth every 6 (six) hours as needed. 09/24/2023 Active docusate sodium (COLACE) 100 MG capsule Take 1 capsule (100 mg total) by mouth 2 (two) times a day. Until regular BM Pattern is established; if no bowel movement by Monday 09/25, start miralax BID until BM occurs. 09/24/2023 Active ibuprofen (ADVIL,MOTRIN) 800 MG tablet Take 1 tablet (800 mg total) by mouth every 8 (eight) hours as needed for pain (specific location in comments). 40 tablet 09/24/2023 Active Active Problems No known active problems Resolved Problems Problem Noted Date Diagnosed Date Resolved Date Uterovaginal prolapse 09/23/20232023 Incomplete uterovaginal prolapse 08/06/2023 09/24/2023 RADHA (stress urinary incontinence, female) 08/06/2023 09/24/2023 Immunizations Immunization Administration Dates Next Due COVID-19 (Pre-12/14) Pfizer Vaccine, mRNA, PF 04/12/2020 Hepatitis B CpG 11/06/2022,10/05/2022 Influenza Quadrivalent MDCK Preservative Free IM 01/13/2022,11/22/2017 Influenza Quadrivalent MDCK w/Preservative IM 03/24/2019 Influenza Quadrivalent Prese rvative Free IM 10/05/2022,11/10/2020,11/26/2016,2015 Influenza Recombinant Samara valent Preservative Free IM 12/01/2019 Tdap 11/25/2022 Zoster recombinant 05/24/2021,02/20/2021 Family History Medical History Relation Comments CV disease Father Hypertension Mother Liver cancer Sister Stroke Sister Heart attack Son Relation Status Comments Father Mother Alive Sister Son Social History Tobacco Use Types Packs/Day Years Used Date Smoking Tobacco: Every Day Cigarettes Smokeless Tobacco: Never Tobacco Cessation:Ready to Q uit: Not Asked; Counseling Given: Not Answered Comments:about 15 a day Alcohol Use Standard [...] on file Sexual Orientation Not on file Last Filed Vital Signs Vital Sign Reading Time Taken Comments Blood Pressure 110/64 11/05/2023 2:33 PM EDT Pulse 68 09/24/2023 8:00 AM EDT Temperature 37 C (98.6 F) 09/24/2023 8:00 AM EDT Respiratory Rate 16 09/24/2023 8:00 AM EDT Oxygen Saturation 98% 09/24/2023 8:00 AM EDT Inhaled Oxygen Concentration - - Weight 63.5 kg (140 lb) 11/26/2023 1:59 PM EDT Height 162.6 cm (5' 4 ) 11/26/2023 1:59 PM EDT Body Mass Index 24.03 11/26/2023 1:59 PM EDT Plan of Treatment Health Maintenance Due Date Last Done Comments DEPRESSION SCREENING 1976 SMOKING Hx and SMOKELESS TOBACCO SCREENING 1977 HIV ONE-TIME SCREENING (18-65 YEARS) 1982 PNEUMOCOCCAL VACCINES (50+ years) (1 of 2 - PCV) 08/30/1983 MAMMOGRAM 2004 COLOGUARD 2009 COLONOSCOPY 2009 COLORECTAL CANCER SCREENING 2009 FIT TEST 2009 FOBT 2009 SIGMOIDOSCOPY 2009 VIRTUAL COLONOSCOPY 2009 INFLUENZA VACCINE (#1) 2024 , 01/13/2022, 11/10/2020, Additional history exists COVID-19 VACCINE (2024- season) 2024 12/08/2022, 01/13/2022, 09/11/2021, Additional history exists LIPID PANEL 04/24/2025 04/24/2020, 03/0 04/2020, 08/31/2017 PAP SMEAR 02/20/2027 02/20/2022, 11/17/2016 Adult Td,Tdap Booster 11/25/2032 11/25/2022 RSV VACCINE (1 - 1-dose 75+ series) 08/30/2039 ZOSTER VACCINES Completed 05/24/2021, 02/20/2021 HEPATITIS C SCREENING Completed 12/10/2022 HEPATITIS A VACCINES Aged Out No long er eligible based on patient's age to complete this topic HIB VACCINES Aged Out No longer eligi ble based on patient's age to complete this topic MENINGOCOCCAL VACCINES (ACWY) Aged Out No longer eligible based on patient's age to complete this topic MENINGOCOCCAL VACCINES (B) Aged Out N o longer eligible based on patient's age to complete this topic Medical Devices Implanted Type Area Arranging Funeral Director Device Identifier Shelf Expiration Date Model / Serial / Lot Sling Incontinence Miduretheral Obtryx Ii Halo Transobturator - [id number] Implanted:Qty: 1 on 09/23/2023 by Uvaldo Ty MD at [facility] N/A: Vagina Leevia CASSANDRA 05/23/2026 [id number] / / [id number] Procedures Procedure Name Priority Date/Time Associated Diagnosis Comments HEPATITIS C VIRAL LOAD (PCR) Routine 12/10/2022 11:36 AM EDT Constipation, unspecified constipation type Internal hemorrhoids PAP TEST Routine 02/20/2022 12:00 AM EST LIPID PANEL Routine 04/24/2020 12:16 PM EST Menopausal state from Last 3 Months or Most Recently Relevant to Health Maintenance Results * Hepatitis C viral load (PCR) (12/10/2022 11:36 AM EDT) HCV RNA DETECT/QNT Undetected Undetected IU/mL [facility] Comment: (NOTE) Result in log IU/mL is Undetected. ADDITIONAL INFORMATION The quantification range of this assay is 15 to 100,000,000 IU/mL (1.18 log to 8.00 log IU/mL). Testing was performed using the isauro HCV test ([employer] with the PV Nano Cell0 System. Blood (Blood) 12/10/2022 11: 36 AM EDT 12/10/2022 11:42 AM EDT us Amberly Gil VENDING MACHINE OPERATOR NON CULTURE MICROBIOLOGY Fi nal Result [facility] [address] [place] [address] * Pap Smear (02/20/2022 12:00 AM EST) 02/20/2022 02/24/2022 9:5 6 AM EST Narrative SEE NARRATIVE - 02/26/2022 3:55 PM EST [address] [address] Delphi Developer: Addie Doll MD DRAMATIC READER Cytology Report FINAL DIAGNOSIS A. PAP SMEAR (SUREPATH) CE: SPECIMEN ADEQUACY: Satisfactory for evaluation; transformation zone present. INTERPRETATION: NEGATIVE FOR INTRAEPITHELIAL LESION OR MALIGNANCY. Parakeratosis Electronically Signed Out By: MD Paige Mitchell CT(ASCP) By his/her signature above, the pathologist listed as making the Final Diagnosis certifies that he/she has personally reviewed this case and confirmed or corrected the diagnosis. The Pap test is a screening test primarily for squamous cancers and precursors and has associated false-negative and false-positive results. New technologies such as liquid-based preparations may decrease but will not eliminate all false-negative results. Regular sampling and follow-up of unexplained clinical signs and symptoms are recommended to minimize false negative results. PROCEDURES/ADDENDA HPV Testing (Requested) Ordered Date: 02/24/2022 A. PAP SMEAR (SUREPATH) CE: Human Papilloma Virus Test Negative for high-risk human papillomavirus types 16, 18, 45 and the Other high risk probe set (Includes 31, 33, 35, 39, 51, 52, 56, 58, 59, 66, 68) by Dynadec Onclarity HR-HPV analysis. Clinical correlation is advised. This HPV test was performed at [facility], [address] [place] [address]. This test has been FDA approved for SurePath cervical cytology specimens. The accuracy and precision of this test for all other specimen sources has been verified in the Cytopathology Laboratory of the [facility] and has not been cleared or approved by the U.S. Food and Drug Administration. Clinical correlation is advised. CLINICAL HISTORY Date of Last Menstrual Period: Not Provided Menstrual History: Post Menopausal Other Clinical Conditions: Screening Pap SPECIMEN SOURCE A: PAP SMEAR (SUREPATH) CE Patient Name: SWATI SOLANO : 1965 (Age: 56) Sex: F Institution: [facility] Location: [facility] Date of Collection: 02/20/2022 Date of Reported: 02/26/2022 15:55 Results to: Nadeem Avila MD, BS us Nadeem Avila MD CYTOLOGY ORDERABLES Final Res ult SEE NARRATIVE * (ABNORMAL) Lipid panel (04/24/2020 12:16 PM EST) HDL 70 mg/dL [facility] Comment: Interpretation <40 mg/dL: Low HDL cholesterol (major risk factor for CHD) Greater than or equal to 60 mg/dL: High HDL cholesterol ( negative risk factor for CHD) HDL - cholesterol is affected by a number of factors, e.g. smoking, excerise, hormones, sex and age. CHOLESTEROL 244(H) 0 - 240 mg/dL [facility] TRIGLYCERIDES 125 30 - 160 mg/dL [facility] LDL 149(H) 50 - 129 mg/dL [facility] Comment: LDL levels in terms of risk for coronary heart disease: <100 mg/dL: Optimal 100-129 mg/dL: Near or above optimal 130-159 mg/dL: Borderline high 160-189 mg/dL: High >190 mg/dL: Very High CARDIAC RISK RATIO 3.5 3.3 - 4.4 C [facility] Blood 04/24/2020 12:1 6 PM EST 04/24/2020 12:20 PM EST us Ari Beauchamp MD LAB BLOOD ORDERABLES Final R esult [address] [phone] from Last 3 Months or Most Recently Relevant to Health Maintenance Insurance [facility] Member Subscriber Plan / Payer (Ef fective 2020-Present) Name:Swati Solano Relation to Subscriber:Self Name:Swati Solano Payer ID:Not on file Type:HMO Address: [place] [id number] [facility] Advance Directives For more information, please contact: [phone] (9AM - 5PM [place], Wednesday-Wednesday) Documents on File Type Date Recorded Patient Education Program Specialist Expl anation Healthcare Proxy 09/23/2023 * Full Code (Latest Code Status on File) Date Activated Date Inactivated Comments 09/23/2023 11:38 AM Question Answer Comments Code Status Confirmed With: Patient * Full Code Date Activated Date Inactivated Comments 09/23/2023 6:11 AM 09/23/2023 11:38 AM Question Answer Comments Code Status Confirmed With: Patient Healthcare Agents on File Name Relationship Healthcare Agent Relationshi p Communication Caludine Christie Other .Primary Health Care Agent (Proxy form on file) Care Teams Supply Teacher Relationship Specialty Start Date End Date Amberly Lynch NP [address] [place] [id number] [email or web address] - General Nurse Practitioner 07/21/23 Additional Source Comments The information contained in this document represents components of the legal health record. It is not the complete legal health record.[facility]
== END 2024-11-01 07:46 | disposition home or self-care (01) ==
LOC: HO.MAMMO 07:45
PROVIDERS: Visit Provider Internal Medicine
DX: Z12.31 Encounter for screening mammogram for malignant neoplasm of breast (principal)
CPT/HCPCS: 77063; 77067

== ENCOUNTER → 2024-11-01 07:45 | Outpatient (BNV) | payer OTHER, SELFPAY | PROVIDERS: Visit Provider Internal Medicine | DX: Z12.31 Encounter for screening mammogram for malignant neoplasm of breast (principal) | CPT/HCPCS: 77063; 77067 ==